=== PATIENT | male | born 1945 | race Two or more races ===

== ENCOUNTER 2022-01-08 11:54 | Inpatient (IN) | payer MEDICARE, OTHER ==
[~2022-01-08] VITALS: Ht 188 cm; Wt 83.2 kg
[2022-01-08 13:32] LABS: Basophils # (auto) 0 10 ^3/uL (0-0.2); Basophils % (auto) 0.2 % (0.0-2.0); Eosinophils # (auto) 0 10 ^3/uL (0-0.8); Hematocrit 42.9 % (41.0-53.0); Hemoglobin 14.3 g/dL (13.5-17.5); Lymphocytes # (auto) 0.5 10 ^3/uL (0.4-5.4); Lymphocytes % (auto) 6.7 % (10.0-50.0); Mean Corpuscular Hgb Conc. 33.4 g/dL (32.0-36.0); Mean Corpuscular Volume 89.9 fL (80.0-100.0); Monocytes # (auto) 0.5 10 ^3/uL (0-1.3); Monocytes % (auto) 6.4 % (0.0-12.0); Neutrophils # (auto) 6.2 10 ^3/uL (1.6-8.6); Neutrophils % (auto) 86.7 % (37.0-80.0); Red Blood Cells 4.77 10^6/uL (4.5-5.90); Red Cell Distribution Width 12.8 % (11.8-14.3); White Blood Cell 7.2 10^3/uL (4.4-10.8)
[2022-01-08 13:50] LABS: Albumin 3.1 g/dL (3.4-5.0); Calcium 8.2 mg/dL (8.5-10.1); Potassium 3.7 mmol/L (3.5-5.1)
[2022-01-08 13:55] LABS: BUN/Creatinine Ratio 14.4; Bilirubin, Total 1.2 mg/dL (0.2-1.0); Total Protein 7.4 g/dL (6.4-8.2)
[2022-01-08] MEDS ORDERED: AZITHROMYCIN 500MG/ 250ML 250 ML IV ONE (14:30)
[2022-01-08] MEDS ORDERED: cefTRIAXone 1GM/50ML D5W 50 ML IV ONE (14:30)
[2022-01-08] MEDS ORDERED: REMDESIVIR PER PHARMACY 0 ML IV SCH (15:45)
[2022-01-08] MEDS ORDERED: ACETAMINOPHEN 325 MG TAB PO PRN ×2 (15:45→16:30)
[2022-01-08] MEDS ORDERED: HYDROcodone-ACET 5/325MG TAB PO PRN (15:45)
[2022-01-08] MEDS ORDERED: ACETAMINOPHEN 500 MG TAB PO PRN (16:00)
[2022-01-08] MEDS: DexAMETHasone SOD PHOS 10MG/1ML VIAL INJ IV SCH (16:02)
[2022-01-08] MEDS: ZINC SULFATE 220mg CAP or TAB PO SCH (16:46)
[2022-01-08] MEDS ORDERED: REMDESIVIR 200 MG in NS 210ml LOADING DOSE ADULT IV ONE (17:00)
[2022-01-09] VITALS (7 sets, daily range): BP systolic 93–127; BP diastolic 48–67
[2022-01-09 05:54] LABS: Basophils # (auto) 0 10 ^3/uL (0-0.2); Eosinophils # (auto) 0 10 ^3/uL (0-0.8); Hematocrit 37.4 % (41.0-53.0); Hemoglobin 13.1 g/dL (13.5-17.5); Lymphocytes # (auto) 0.8 10 ^3/uL (0.4-5.4); Lymphocytes % (auto) 8.7 % (10.0-50.0); Mean Corpuscular Hemoglobin 31.8 pg (28.0-32.0); Mean Corpuscular Hgb Conc. 35.1 g/dL (32.0-36.0); Mean Corpuscular Volume 90.4 fL (80.0-100.0); Monocytes # (auto) 0.6 10 ^3/uL (0-1.3); Neutrophils # (auto) 7.4 10 ^3/uL (1.6-8.6); Neutrophils % (auto) 84.3 % (37.0-80.0); Nucleated Red Blood Cells % 0.2 %; Red Blood Cells 4.14 10^6/uL (4.5-5.90); Red Cell Distribution Width 12.7 % (11.8-14.3); White Blood Cell 8.8 10^3/uL (4.4-10.8)
[2022-01-09 06:06] LABS: Potassium 3.8 mmol/L (3.5-5.1)
[2022-01-09 06:22] LABS: Albumin 2.7 g/dL (3.4-5.0); BUN/Creatinine Ratio 16.9; Calcium 8.3 mg/dL (8.5-10.1); Total Protein 6.6 g/dL (6.4-8.2)
[2022-01-09] MEDS: DexAMETHasone SOD PHOS 10MG/1ML VIAL INJ IV SCH (10:18)
[2022-01-09] MEDS: cefTRIAXone 1GM/50ML D5W 50 ML IV SCH (10:18)
[2022-01-09] MEDS: ZINC SULFATE 220mg CAP or TAB PO SCH (10:18)
[2022-01-09] MEDS: ENOXAPARIN SOD 40 MG/0.4 ML SYRINGE SC SCH (10:19)
[2022-01-09] MEDS: AZITHROMYCIN 500MG/ 250ML 250 ML IV SCH (11:32)
[2022-01-09] MEDS ORDERED: IOHEXOL 350 MG/ML 100ML IJ ONE (13:40)
[2022-01-09] MEDS ORDERED: ALBUTEROL SULF 2.5 MG/0.5ML(0.5%) NEB SOLN NEB SCH ×2 (14:00→18:00)
[2022-01-09] MEDS ORDERED: IPRATROPIUM BROM 0.5 MG/2.5ML INH SOL NEB SCH ×2 (14:00→18:00)
[2022-01-09] MEDS ORDERED: ASCORBIC ACID 500 MG TAB PO ONE (14:15)
[2022-01-09] MEDS ORDERED: VANCOMYCIN PER PHARMACY 0 MG IV SCH (15:00)
[2022-01-09] MEDS: REMDESIVIR 100mg 100 MG in SODIUM CHL 0.9% 230 ML IV SCH (16:05)
[2022-01-09] MEDS: VANCOMYCIN 1GM/250ML 250 ML IV SCH (17:02)
[2022-01-09] MEDS ORDERED: ALBUTEROL SULF HFA 90MCG INH 200DOSE IN SCH (18:00)
[2022-01-09] MEDS ORDERED: ALBUTEROL SULF HFA 90MCG INH 200DOSE IN PRN (19:30)
[2022-01-09] MEDS ORDERED: ALBUTEROL MT SCH (22:00)
[2022-01-10] MEDS: VANCOMYCIN 1GM/250ML 250 ML IV SCH ×2 (04:41→17:36)
[2022-01-10 05:00] VITALS: BP 110/63
[2022-01-10 09:00] VITALS: BP 106/59
[2022-01-10] MEDS: cefTRIAXone 1GM/50ML D5W 50 ML IV SCH (09:06)
[2022-01-10] MEDS: ZINC SULFATE 220mg CAP or TAB PO SCH (09:47)
[2022-01-10] MEDS: AZITHROMYCIN 500MG/ 250ML 250 ML IV SCH (09:47)
[2022-01-10] MEDS: DexAMETHasone SOD PHOS 10MG/1ML VIAL INJ IV SCH (09:47)
[2022-01-10] MEDS: CHOLECALCIFEROL (VITD3) 2,000 UNIT CAP/TAB PO SCH (09:47)
[2022-01-10] MEDS: ENOXAPARIN SOD 40 MG/0.4 ML SYRINGE SC SCH (09:48)
[2022-01-10 13:00] VITALS: BP 104/56
[2022-01-10] MEDS: REMDESIVIR 100mg 100 MG in SODIUM CHL 0.9% 230 ML IV SCH (15:47)
[2022-01-10 17:00] VITALS: BP 109/55
[2022-01-10] MEDS ORDERED: TEMAZEPAM 15 MG CAP PO PRN (18:00)
[2022-01-10 22:00] VITALS: BP 113/56
[2022-01-11] MEDS: VANCOMYCIN 1GM/250ML 250 ML IV SCH ×2 (03:46→17:26)
[2022-01-11 05:00] VITALS: BP 116/72
[2022-01-11] MEDS: cefTRIAXone 1GM/50ML D5W 50 ML IV SCH (08:52)
[2022-01-11 09:00] VITALS: BP 104/66
[2022-01-11] MEDS: ZINC SULFATE 220mg CAP or TAB PO SCH (10:10)
[2022-01-11] MEDS: AZITHROMYCIN 500MG/ 250ML 250 ML IV SCH (10:10)
[2022-01-11] MEDS: DexAMETHasone SOD PHOS 10MG/1ML VIAL INJ IV SCH (10:10)
[2022-01-11] MEDS: CHOLECALCIFEROL (VITD3) 2,000 UNIT CAP/TAB PO SCH (10:11)
[2022-01-11] MEDS: ENOXAPARIN SOD 40 MG/0.4 ML SYRINGE SC SCH (10:11)
[2022-01-11] MEDS ORDERED: guaiFENesin-DM 100/10mg/5ml SYR PO PRN (12:00)
[2022-01-11 13:00] VITALS: BP 99/54
[2022-01-11] MEDS: REMDESIVIR 100mg 100 MG in SODIUM CHL 0.9% 230 ML IV SCH (15:50)
[2022-01-11 17:00] VITALS: BP 110/67
[2022-01-11 22:00] VITALS: BP 112/75
[2022-01-12] MEDS: VANCOMYCIN 1GM/250ML 250 ML IV SCH (03:16)
[2022-01-12 05:00] VITALS: BP 106/64
[2022-01-12 07:34] VITALS: BP 115/69
[2022-01-12 09:00] VITALS: BP 105/50
[2022-01-12] MEDS: DexAMETHasone SOD PHOS 10MG/1ML VIAL INJ IV SCH (10:07)
[2022-01-12] MEDS: CHOLECALCIFEROL (VITD3) 2,000 UNIT CAP/TAB PO SCH (10:08)
[2022-01-12] MEDS: ENOXAPARIN SOD 40 MG/0.4 ML SYRINGE SC SCH (10:08)
[2022-01-12] MEDS: cefTRIAXone 1GM/50ML D5W 50 ML IV SCH (10:08)
[2022-01-12] MEDS: ZINC SULFATE 220mg CAP or TAB PO SCH (10:08)
[2022-01-12] MEDS: AZITHROMYCIN 500MG/ 250ML 250 ML IV SCH (10:22)
[2022-01-12] MEDS: REMDESIVIR 100mg 100 MG in SODIUM CHL 0.9% 230 ML IV SCH (15:48)
[2022-01-12 22:03] VITALS: BP 127/63
[2022-01-13 05:04] VITALS: BP 108/72
[2022-01-13 09:00] VITALS: BP 112/69
[2022-01-13] MEDS: ENOXAPARIN SOD 40 MG/0.4 ML SYRINGE SC SCH (09:41)
[2022-01-13] MEDS: CHOLECALCIFEROL (VITD3) 2,000 UNIT CAP/TAB PO SCH (09:41)
[2022-01-13] MEDS: ZINC SULFATE 220mg CAP or TAB PO SCH (09:41)
[2022-01-13] MEDS: DexAMETHasone SOD PHOS 10MG/1ML VIAL INJ IV SCH (09:41)
[2022-01-13] MEDS: cefTRIAXone 1GM/50ML D5W 50 ML IV SCH (09:42)
== END 2022-01-13 10:30 | disposition left against medical advice (07) | DRG 871 ==
LOC: ER 11:54 → TELE 15:57 → TELE-EAST 23:48
PROVIDERS: ADMIT Internal Medicine; ATTEND Family Medicine
PROC: XW033E5 Introduction of Remdesivir Anti-infective into Peripheral Vein, Percutaneous Approach, New Technology Group 5 (ICD-10-PCS; principal; 2022-01-08)
DX: A41.89 Other specified sepsis (principal); J12.82 Pneumonia due to coronavirus disease 2019; U07.1 COVID-19; J96.01 Acute respiratory failure with hypoxia; J02.9 Acute pharyngitis, unspecified; I49.5 Sick sinus syndrome; Z53.29 Procedure and treatment not carried out because of patient's decision for other reasons; Z28.39 Other underimmunization status
CPT/HCPCS: 36415; 71045; 71275; 80053; 80202; 82565; 82728; 83605; 83880; 84484; 85025; 85379; 87040; 87077; 87186; 93005; 93306; 93970; 96365; 96368; 96375; 99291; G0378; J0696; J1100